=== PATIENT | male | born 1970 | race Caucasian/White ===

== ENCOUNTER 2019-10-02 22:15 | Emergency (ER) | payer BC ==
[2019-10-02] MEDS ORDERED: Lidocaine 1% 30 ML SDV INJECT ONE (22:34)
[2019-10-02] MEDS ORDERED: Diphtheria,Pertussis(Acell),Tetanus Vaccine 0.5 ML Syringe IM ONE (23:08)
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
== END 2019-10-02 23:23 | disposition home or self-care (01) ==
LOC: VM.ED 22:15
DX: S91.312A Laceration without foreign body, left foot, initial encounter (principal); Z23 Encounter for immunization; X58.XXXA Exposure to other specified factors, initial encounter
CPT/HCPCS: 12002; 90471; 90715; 99283; J2001; 12042

== ENCOUNTER 2021-02-21 10:25 | Day surgery (SDC) | payer BC ==
[~2021-02-21 10:25] MED LIST: Lactated Ringers 1,000 ML IV SCH
[2021-02-21] MEDS ORDERED: Propofol 200 MG/20 ML SDV ONE ×2 (11:30→12:00)
[2021-02-21] MEDS ORDERED: fentaNYL 100 MCG/2 ML SDV ONE (11:30)
--- NOTE | 2021-02-21 15:02 | OR ---
DATE OF SURGERY: 02/21/2021. REFERRING PROVIDER: Zandra Peterson MD PRE-OPERATIVE DIAGNOSIS: Screening colonoscopy. This is the patient's first colonoscopy. He denies any family history of colon cancer or significant colon polyps. POST-OPERATIVE DIAGNOSES: 1. Two tiny polyps removed using cold forceps. a. 2 mm at 70 cm. b. 2 mm at 40 cm. 2. Mild sigmoid diverticulosis. 3. Normal-appearing terminal ileum. PROCEDURE: Colonoscopy with polypectomy x2 using cold forceps. SURGEON: Vikram Lange M.D. ANESTHESIA: Monitored anesthesia care. BOWEL PREP: Good. Ricky is a 50-year-old male who was brought to the endoscopy suite after discussing risks and benefits of the procedure. Informed consent was obtained for conscious sedation and colonoscopy with or without biopsy and/or polypectomy. We also discussed possibility of missed lesions. Pre-procedure exam was unremarkable. IV, oxygen, and monitors were placed. The patient was placed in the left lateral decubitus position. Sedation was administered and a digital rectal exam was performed and unremarkable. Colonoscope was passed into the rectum and slowly advanced all the way to the cecum. Cecum was viewed. Ileocecal valve was intubated and terminal ileum was normal in appearance. The colonoscope was slowly withdrawn and the mucosa was closed observed in a direct circumferential manner. The ascending colon was unremarkable. The transverse colon revealed 2 mm polyp at 70 cm, removed using cold forceps. The descending colon revealed 2 mm polyp at 40 cm, removed using cold forceps. The sigmoid colon was remarkable for mild diverticulosis. Retroflexion was performed and rectal mucosa was unremarkable. Scope was removed. The patient tolerated the procedure well. The patient was monitored until that baseline status. Discharge instructions were reviewed and the patient was discharged in good condition. COMPLICATIONS: None. TOTAL TIME: 18 minutes. ESTIMATED BLOOD LOSS: Above 1 mL. RECOMMENDATIONS/FOLLOW-UP: We will await results of path report to determine ideal followup interval. I would like to kindly thank Dr. Peterson for this referral. DMB: 02/21/2021 13:26:44 MODL: 02/21/2021 14:29:52 /[id number]
== END 2021-02-21 14:00 | disposition home or self-care (01) ==
LOC: VM.SDS 10:25
PROVIDERS: ATTEND Family Medicine
DX: Z12.11 Encounter for screening for malignant neoplasm of colon (principal); D12.3 Benign neoplasm of transverse colon; D12.4 Benign neoplasm of descending colon; K57.30 Diverticulosis of large intestine without perforation or abscess without bleeding; E22.1 Hyperprolactinemia; Z87.891 Personal history of nicotine dependence
CPT/HCPCS: 00812; J2704; J3010; J7120